=== PATIENT | female | born 1985 | race Caucasian/White ===

== ENCOUNTER 2019-05-01 22:23 | Emergency (ER) | payer OTHER ==
[~2019-05-01] VITALS: Ht 160 cm; Wt 59.1 kg
[2019-05-01 22:32] VITALS: Ht 160 cm; Wt 59.1 kg
[2019-05-01] MEDS ORDERED: VIBRAMYCIN 100100 MG PO (23:17)
[2019-05-01] MEDS ORDERED: TYLENOL W/CODEI1 TAB PO (23:17)
[2019-05-01] MEDS ORDERED: TAMIFLU75 MG PO (23:17)
[2019-05-02 00:21] VITALS: BP 106/75
== END 2019-05-02 00:21 | disposition home or self-care (01) ==
LOC: D.ER 22:23
DX: J11.1 Influenza due to unidentified influenza virus with other respiratory manifestations (principal); J01.90 Acute sinusitis, unspecified